=== PATIENT | female | born 1995 | race Hispanic/Latino ===

== ENCOUNTER 2017-08-27 07:55 | Day surgery (SDC) | payer SELFPAY ==
[2017-08-27 08:25] LABS: Hematocrit 40.2 % (36.0-47.0); Mean Platelet Volume 7.5 fL (7.4-10.4); Red Blood Cell (RBC) Count 4.39 mill/uL (4.20-5.40); White Blood Cell (WBC) Count 22.8 thou/uL (4.8-10.8)
[2017-08-27 08:44] LABS: ALT (SGPT) 17 U/L (8-55); AST (SGOT) 15 U/L (5-34); Alkaline Phosphatase 101 U/L (40-150); Anion Gap 16 mmol/L (10-20); BUN (Urea Nitrogen) 9 mg/dL (7.0-18.7); Calc. Creatinine Clearance 0 mL/min (70-130); Calcium 9.5 mg/dL (7.8-10.44); Carbon Dioxide 21 mmol/L (22-29); Chloride 103 mmol/L (98-107); Estimated GFR-MDRD Greater than 90; Globulin 3.7 g/dL (2.4-3.5); Protein, Total 7.9 g/dL (6.0-8.3)
[2017-08-27 08:52] LABS: Band 10 % (5-11); Neutrophil 78 % (42-75)
[2017-08-27 10:30] LABS: Bilirubin Negative (Negative); Blood, Urine Negative (Negative); Glucose, Urine (Dipstick) Negative (Negative); Ketone, Urine Negative (Negative); Nitrite Negative (Negative); Protein, Urine (Dipstick) Trace mg/dL (Neg-Trace)
[2017-08-27 10:32] LABS: Bacteria/HPF 2+ HPF (None Seen); Hyaline Casts/LPF 0-3 HYALINE CAST LPF (0-3 Hyaline)
[2017-08-27 10:46] LABS: RBC/HPF 0-3 HPF (0-3)
[2017-08-27] MEDS ORDERED: metroNIDAZOLE 500 MG/100 ML BAG ONE (11:50)
[2017-08-27] MEDS ORDERED: Ondansetron ODT 4 MG TAB SL PRN (12:00)
[2017-08-27] MEDS ORDERED: Ondansetron HCl/PF 4 MG/2 ML Vial IVP PRN ×2 (12:00→16:45)
--- NOTE | 2017-08-27 12:18 | CT ---
CT ABDOMEN WITH IV CONTRAST: CT PELVIS WITH IV CONTRAST: 08/27/2017 HISTORY: Abdominal pain, nausea, and vomiting. Chills and pressure when urinating. FINDINGS: The appendix is dilated, measuring 1.5 cm in greatest diameter with enhancement in thickening of the jack and adjacent periappendiceal inflammatory changes, as well as minimal cecal apical thickening , compatible with appendicitis. There is no fluid collection to suggest a periappendiceal abscess, and no free intraperitoneal gas is visualized. A small amount of free fluid is seen in the pelvis. There are multiple masses in the liver, which demonstrate mild peripheral enhancement with a small c entral area of decreased enhancement, which may represent central scar, related to focal nodular hyp erplasia. The largest mass is seen in the right hepatic lobe, measuring 4.1 cm. Further evaluation with MRI is recommended to confirm that these lesions do represent focal nodular hyperplasia. The lung bases, pancreas, bilateral adrenal glands, kidneys, abdominal aorta, and opacified small kera wel, as well as urinary bladder, uterus, and adnexal structures demonstrate a normal CT appearance. A calcified granuloma is seen in the spleen. IMPRESSION: 1. Multiple masses in the liver, demonstrating characteristics on CT exam most suggestive of focal nodular hyperplasia; however, MRI is recommended to confirm this finding. 2. Acute appendicitis. 3. Small amount of free fluid in the pelvis. 4. The above findings were discussed with JASMIN Stevenson, in the emergency department, on 08/27, at 1038 hours. CODE CR POS: [id number]
[2017-08-27] MEDS ORDERED: Lactated Ringer's 1,000 ML IV SCH (12:45)
[2017-08-27] MEDS ORDERED: metroNIDAZOLE 500 MG in Premix Bag 1 BAG IVPB SCH (12:45)
[2017-08-27] MEDS ORDERED: Iopamidol 370 76% 50 ML VIAL FS ONE (13:48)
[2017-08-27] MEDS ORDERED: ISOVUE-370 76%-LOCM 1 ML ONE (13:49)
[2017-08-27] MEDS ORDERED: Fentanyl 250 MCG/5 ML VIAL ONE (14:46)
[2017-08-27] MEDS ORDERED: Midazolam HCl 2 mg/2 ml Vial ONE (14:46)
[2017-08-27] MEDS ORDERED: Bupivacaine 0.25% HCL 30 ML VIAL ONE (14:48)
[2017-08-27] MEDS ORDERED: Lidocaine 2% w/Epinephrine 1:200K 20 ML VIAL ONE (14:48)
[2017-08-27] MEDS ORDERED: Succinylcholine Chloride 20 MG/ML 10 ml SYRINGE FS ONE (15:31)
[2017-08-27] MEDS ORDERED: Glycopyrrolate 0.2 MG/ML 5 ML SYRINGE ONE (15:31)
[2017-08-27] MEDS ORDERED: Dexamethasone 20 MG/5 ML VIAL ONE (15:31)
[2017-08-27] MEDS ORDERED: Lidocaine 2% PF 10 ML AMP (For Epidural Use) ONE (15:31)
[2017-08-27] MEDS ORDERED: Ondansetron HCl/PF 4 MG/2 ML Vial ONE (15:31)
[2017-08-27] MEDS ORDERED: Propofol 200 MG/20 ML VIAL ONE (15:31)
[2017-08-27] MEDS ORDERED: PHENYLEPHRINE-NS 100 MCG/ML 10 ML SYRINGE ONE (15:31)
[2017-08-27] MEDS ORDERED: HYDROmorphone 2 MG/ML VIAL SLOW IVP PRN (16:45)
[2017-08-27] MEDS ORDERED: Promethazine HCl 25 MG/ML VIAL IM PRN (16:45)
[2017-08-27] MEDS ORDERED: Promethazine HCl 25 MG/ML VIAL SLOW IVP PRN (16:45)
--- NOTE | 2017-08-28 20:41 | PDOC.OP ---
Operative Note - Operative Note Operative Note: PROCEDURE: Laparoscopic appendectomy SURGEON: Cyndee Betlrán M.D. DATE OF PROCEDURE: 08/27/2017 PREOPERATIVE DIAGNOSIS: Appendicitis POSTOPERATIVE DIAGNOSIS: Appendicitis HISTORY: Patient with abdominal pain localizing to the right lower quadrant and appendicitis by CT scan. Laparoscopic appendectomy was recommended. FINDINGS: Acutely inflamed appendix without evidence of perforation or periappendiceal abscess. DESCRIPTION OF PROCEDURE: After informed consent was obtained and appropriate antibiotics continued, the patient was taken to the operating room and placed in the supine position and general endotracheal anesthesia was administered. The bladder was decompressed with a [place] catheter and the abdomen was prepped and draped in the standard sterile fashion. Local anesthesia was infused to the skin and subcutaneous tissues superior to the umbilicus. A transverse skin incision was made and a Veress needle placed into the abdominal cavity and carbon dioxide gas insufflated without difficulty. Opening pressure was less than 5. Carbon dioxide gas was insufflated to an intra-abdominal pressure 15 and the patient tolerated this well. The Veress needle was withdrawn and a Pierce port advanced under direct laparoscopic vision into the abdominal cavity. Two additional ports were placed in the suprapubic and left lateral abdomen under direct laparoscopic vision after local anesthesia was infused at these sites. The appendix was identified and appeared inflamed but not perforated. The appendix was grasped by the mesoappendix and elevated. The mesoappendix was then sequentially ligated and divided down to the base of the appendix, which was normal in appearance and was clearly seen to be at the confluence of the tenia. Two Endoloops were placed around the base of the appendix and the appendix was divided between these Endoloops, placed into an EndoCatch bag and drawn out through the suprapubic incision. The suprapubic trocar was then replaced and the operative site was easily irrigated to clear. The suprapubic trocar was removed and the fascia closed under direct laparoscopic vision with a 0 Vicryl suture on a GraNee needle with excellent technical result. The left lateral trocar was then removed and hemostasis verified. Carbon dioxide gas was desufflated through the umbilical trocar which was then removed. The skin incisions were irrigated and additional local anesthesia infused at each site. The skin was closed with 4-0 subcuticular Monocryl sutures and Dermabond dressings were placed. The patient was extubated and taken to the recovery room in good condition. Estimated blood loss was minimal. There were no complications. SPECIMEN: Appendix.
== END 2017-08-27 18:27 | disposition home or self-care (01) ==
LOC: ERS 07:55 → SDC 11:38
PROVIDERS: ATTEND Surgery
PROC: 0DTJ4ZZ Resection of Appendix, Percutaneous Endoscopic Approach (ICD-10-PCS; principal; 2017-08-27)
DX: K37 Unspecified appendicitis (principal)
CPT/HCPCS: 36415; 74177; 80053; 81003; 81015; 81025; 83690; 85025; 88304; J0744; J1100; J2001; J2250; J2405; J2704; J3010; S0020